=== PATIENT | male | born 1965 | race Caucasian/White ===

== ENCOUNTER 2020-03-17 01:35 | Outpatient (CLI) | payer OTHER, SELFPAY ==
--- NOTE | 2020-03-17 15:30 | DI.MRI_ITS ---
EXAM: MR LUMBAR SPINE WO CLINICAL HISTORY: LUMBAR RADICULOPATHY, BACK PAIN. TECHNIQUE: Multiplanar multisequence MRI of the Lumbar spine was performed. COMPARISON: No exams were available for comparison FINDINGS: Bones: The last intervertebral disc space is designated the L5/S1 level for the numbering purpose of this examination. The vertebral body heights are well maintained. Alignment is satisfactory. Mild d egenerative endplate signal changes are seen at L3-4 and L4-L5. Cord: The conus tip ends at the L1 level. It is of normal size and signal intensity. T12-L1: No disc herniations or bulges are present. No central spinal canal or neural foraminal stenos is. L1-2: No disc herniations or bulges are present. No central spinal canal or neural foraminal stenosis . L2-3: No disc herniations or bulges are present. No central spinal canal or neural foraminal stenosis . L3-4: There is a diffuse disc bulge. There are hypertrophic changes of the facets and ligamentum fla vum. The findings all contribute to cause moderately severe central spinal canal stenosis. There is also moderately severe bilateral neural foraminal stenosis. L4-5: There is a mild diffuse disc bulge. There are hypertrophic changes of the facets and ligamentu m flavum. These result in mild narrowing of the central spinal canal. There is mild narrowing of th e neural foramen bilaterally. L5-S1: No disc herniations or bulges are present. No central spinal canal or neural foraminal stenosi s. Soft tissues: The visualized SI joints and sacrum are well maintained. The paraspinal soft tissues ar e unremarkable. There is a 2.3 x 2.3 cm simple cyst in the right kidney. IMPRESSION: 1. There is a diffuse disc bulge at L3-L4. This, in conjunction with the degenerative changes, cause s moderately severe central spinal canal stenosis and moderately severe bilateral neural foraminal st enosis. 2. A diffuse disc bulge is seen at L4-L5. This, in conjunction with the degenerative changes, causes mild narrowing of the central spinal canal and mild bilateral neural foraminal stenosis. DATA REPOSITORY:
== END 2020-03-17 01:36 | disposition home or self-care (01) ==
PROVIDERS: PCP Nurse Practitioner; Visit Provider Physician Assistant
DX: M51.26 Other intervertebral disc displacement, lumbar region (principal); M48.061 Spinal stenosis, lumbar region without neurogenic claudication; M54.16 Radiculopathy, lumbar region
CPT/HCPCS: 72148